=== PATIENT | female | born 2000 | race Asian ===

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

== ENCOUNTER 2021-01-26 22:17 | Emergency (ER) | payer SELFPAY ==
[2021-01-26 22:44] VITALS: BP 148/112
--- NOTE | 2021-01-26 23:17 | ED Physician Documentation ---
History of Present Illness - Stated complaint Stated Complaint: SOA, CHEST PX - Chief complaint Chief Complaint: General - History obtained from History obtained from: Patient - Additonal information Additional information: Pt states she has felt mildly sick over the past couple of days. Mainly, she has had slight nausea and a mild cough. She is in school and under a lot of stress, and states she finds herself in general holding her breath, which leads to a sense of chest tightness. Pt states this has led to a panic attack in the past, and this also happened today. She also does not sleep well at night. No fevers. No known sick contacts. Not vaccinated for covid. Pt has mild nasal congestion. No pain. No other complaints at this time. Review of Systems Ten Systems: 10 systems reviewed and negative Constitutional: reports: Reviewed and negative Eyes: reports: Reviewed and negative Ears: reports: Reviewed and negative Nose: reports: Reviewed and negative Throat: reports: Reviewed and negative Cardiac: reports: Reviewed and negative Respiratory: reports: Reviewed and negative GI: reports: Reviewed and negative : reports: Reviewed and negative Skin: reports: Reviewed and negative Musculoskeletal: reports: Reviewed and negative Neurologic: reports: Reviewed and negative Psychiatric: reports: Reviewed and negative Endocrine: reports: Reviewed and negative Immunocompromised: reports: Reviewed and negative PD PAST MEDICAL HISTORY - Past Medical History Past Medical History: No - Past Surgical History Past Surgical History: No - Allergies Allergies/Adverse Reactions: Allergies Allergy/AdvReac Type Severity Reaction Status Date / Time No Known Drug Allergies Allergy Verified 01/26/21 22:44 - Social History Does the pt smoke?: No Smoking Status: Never smoker Does the pt drink ETOH?: No Does the pt have substance abuse?: No - Immunizations Immunizations are current?: No - POLST Patient has POLST: No PD ED PE NORMAL - Vitals Vital signs reviewed: Yes - General General: Alert and oriented X 3, No acute distress, Well developed/nourished - HEENT HEENT: Atraumatic, PERRL, EOMI, Moist mucous membranes, Pharynx benign - Neck Neck: Supple, no meningeal sign - Cardiac Cardiac: RRR, No murmur, Strong equal pulses - Respiratory Respiratory: No respiratory distress, Clear bilaterally - Abdomen Abdomen: Soft, Non tender, Non distended - Derm Derm: Normal color, Warm and dry, No rash - Extremities Extremities: No deformity, No edema - Neuro Neuro: Alert and oriented X 3, 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 We have discussed breathing exercises to help pt relax and avoid panic attacks. We have discussed the usual indications for return. Departure - Departure Disposition: 01 Home, Self Care Clinical Impression: Panic attack Upper respiratory infection Qualifiers: URI type: unspecified viral URI Qualified Code(s): J06.9 - Acute upper respiratory infection, unspecified Condition: Stable Instructions: ED URI Viral Discharge Date/Time: 01/26/21 23:45
--- NOTE | 2021-01-26 23:20 | XRAY Report ---
PROCEDURE: Chest 1 View X-Ray INDICATIONS: Cough, shortness of breath TECHNIQUE: One view of the chest was acquired. COMPARISON: None FINDINGS: Surgical changes and devices: None. Lungs and pleura: No pleural effusions or pneumothorax. Lungs are clear. Mediastinum: Mediastinal contours appear normal. Heart size is normal. Bones and chest wall: No suspicious bony lesions. Overlying soft tissues appear unremarkable. IMPRESSION: No acute cardiopulmonary process demonstrated radiographically. Reviewed by: Jorge Luis Malone MD on 01/26/2021 11:18 PM PDT Approved by: Jorge Luis Malone MD on 01/26/2021 11:18 PM PDT Station ID: [id number]
== END 2021-01-26 23:45 | disposition home or self-care (01) ==
LOC: ED 22:17
DX: F41.0 Panic disorder [episodic paroxysmal anxiety] (principal); J06.9 Acute upper respiratory infection, unspecified; B97.89 Other viral agents as the cause of diseases classified elsewhere
CPT/HCPCS: 99282; 99283

== ENCOUNTER 2021-06-03 12:15 | Emergency (ER) | payer MEDICAID ==
[2021-06-03 12:23] VITALS: BP 114/71
--- NOTE | 2021-06-03 12:29 | ED Physician Documentation ---
PD HPI LOWER EXT INJURY - Stated complaint Stated Complaint: L ANKLE INJ - Chief complaint Chief Complaint: Trauma Ext - History obtained from History obtained from: Patient - Additional information Additional information: She rolled her right ankle 6 days ago at the [employer] and has persistent medial foot pain on the left. No other injuries. No possibility of . Declined pain medication. It is slowly improving. Review of Systems Constitutional: reports: Reviewed and negative Eyes: reports: Reviewed and negative Ears: reports: Reviewed and negative Nose: reports: Reviewed and negative Throat: reports: Reviewed and negative Cardiac: reports: Reviewed and negative Respiratory: reports: Reviewed and negative PD PAST MEDICAL HISTORY - Past Surgical History Past Surgical History: No - Present Medications Home Medications: Ambulatory Orders Medication Instructions Recorded Confirmed No Known Home Medications 06/03/21 06/03/21 - Allergies Allergies/Adverse Reactions: Allergies Allergy/AdvReac Type Severity Reaction Status Date / Time No Known Drug Allergies Allergy Verified 06/03/21 12:23 - Social History Does the pt smoke?: No Smoking Status: Never smoker Does the pt drink ETOH?: No Does the pt have substance abuse?: No - Immunizations Immunizations are current?: No - POLST Patient has POLST: No PD ED PE NORMAL - Vitals Vital signs reviewed: Yes - General General: Alert and oriented X 3, No acute distress - Extremities Extremities: Other (Left foot and ankle, there is some bruising over the talus but no tenderness there. She is quite tender over the medial foot, the cuneiform and navicular. No other foot or ankle tenderness.) - Neuro Neuro: Alert and oriented X 3, Normal speech Results - Vitals Vitals: Vital Signs - 24 hr 06/03/21 12:18 Temperature 36.6 C Heart Rate 114 H Respiratory 16 Rate Blood Pressure 114/71 O2 Saturation 100 Oxygen O2 Source Room air - Rads (name of study) Three-view x-ray of the left foot is unremarkable Radiology: EMP read contemporaneously Departure - Departure Disposition: 01 Home, Self Care Clinical Impression: Sprain of left foot Qualifiers: Encounter type: initial encounter Qualified Code(s): S93.602A - Unspecified sprain of left foot, initial encounter Condition: Good Record reviewed to determine appropriate education?: Yes Instructions: ED Sprain Foot Comments: Ice elevate and you continue to can wrap for comfort. Return for new or worsening symptoms. Okay to walk and bear weight as tolerated. Tylenol and/or ibuprofen as needed for pain. Forms: Activity restrictions
--- NOTE | 2021-06-03 12:49 | XRAY Report ---
PROCEDURE: Foot 3 View LT INDICATIONS: foot injury, TTP near navicular/cuneiform TECHNIQUE: 3 views of the foot were acquired. COMPARISON: None. FINDINGS: BONES: No acute, displaced fracture or dislocation. Mild hallux valgus. SOFT TISSUES: No focal abnormality. IMPRESSION: 1.No acute osseous abnormality. Reviewed by: Carmine Givens MD on 06/03/2021 12:48 PM [facility] Approved by: Carmine Givens MD on 06/03/2021 12:48 PM [facility] Station ID: [id number]
== END 2021-06-03 13:08 | disposition home or self-care (01) ==
LOC: ED 12:15
DX: S93.602A Unspecified sprain of left foot, initial encounter (principal); X50.1XXA Overexertion from prolonged static or awkward postures, initial encounter; Y93.44 Activity, trampolining; Y92.830 Public park as the place of occurrence of the external cause
CPT/HCPCS: 99282; 99283

== ENCOUNTER 2022-04-05 08:00 | Outpatient (CLI) | payer MEDICAID ==
[2022-04-05 23:18] LABS: BACTERIAL VAGINOSIS DNA NEGATIVE (NEGATIVE); CANDIDA GLABRATA DNA NEGATIVE (NEGATIVE); CANDIDA GROUP DNA NEGATIVE (NEGATIVE); CANDIDA KRUSEI DNA NEGATIVE (NEGATIVE); TRICHOMONAS VAGINALIS DNA NEGATIVE (NEGATIVE)
[2022-04-07 18:54] LABS: CHLAMYDIA TRACHOMATIS DNA NEGATIVE (NEGATIVE); NEISSERIA GONORRHOEAE DNA NEGATIVE (NEGATIVE)
== END 2022-04-05 23:59 | disposition home or self-care (01) ==
LOC: LAB.N 08:00
PROVIDERS: ATTEND Physician Assistant
DX: N73.0 Acute parametritis and pelvic cellulitis (principal)
CPT/HCPCS: 81514; 87491; 87591; 87661